=== PATIENT | male | born 2000 | race Two or more races ===

== ENCOUNTER 2019-05-17 01:25 | Emergency (ER) | payer OTHER ==
[~2019-05-17] VITALS: Ht 165.1 cm; Wt 59.1 kg
[2019-05-17] MEDS ORDERED: DiphenhydrAMINE HCL 25 MG CAPSULE PO ONE (04:15)
[2019-05-17] MEDS ORDERED: IBUPROFEN 600 MG TABLET PO ONE (04:15)
[2019-05-17] MEDS ORDERED: METOCLOPRAMIDE HCL 10 MG TABLET PO ONE (04:15)
[2019-05-17 05:27] VITALS: BP 118/70
== END 2019-05-17 05:45 | disposition home or self-care (01) ==
LOC: EMS 01:28
DX: R51 Headache (principal)
CPT/HCPCS: 70450